=== PATIENT | male | born 1995 | race Hispanic/Latino ===

== ENCOUNTER 2017-02-12 03:17 | Emergency (ER) | payer SELFPAY ==
[2017-02-12] MEDS ORDERED: Lidocaine 1% PF 5 ML VIAL ONE (04:49)
[2017-02-12] MEDS ORDERED: Adacel (T-DAP) 0.5 ML VIAL ONE (05:53)
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
== END 2017-02-12 06:45 ==
LOC: ERS 03:17
DX: S02.2XXA Fracture of nasal bones, initial encounter for closed fracture (principal); F17.210 Nicotine dependence, cigarettes, uncomplicated; V44.5XXA Car driver injured in collision with heavy transport vehicle or bus in traffic accident, initial encounter
CPT/HCPCS: 12011; 70450; 70486; 72125; 90471; 90715; J2001